=== PATIENT | female | born 1985 | race Caucasian/White ===

== ENCOUNTER 2018-01-25 16:05 | Emergency (ER) | payer OTHER, SELFPAY ==
[2018-01-25 16:07] VITALS: BP 131/84; PULSE 97; RESP 18; TEMP 36.6; O2SAT 100; BMI 27.3
[2018-01-25 16:54] VITALS: BP 127/87; PULSE 86; RESP 16; O2SAT 100
--- NOTE | 2018-01-25 16:59 | EKG12_ITS ---
Test Reason : CP Blood Pressure : / mmHG Vent. Rate : 085 BPM Atrial Rate : 085 BPM P-R Int : 174 ms QRS Dur : 086 ms QT Int : 344 ms P-R-T Axes : 073 084 071 degrees QTc Int : 409 ms Normal sinus rhythm with sinus arrhythmia Septal infarct , age undetermined Abnormal ECG Confirmed by ELIZABETH HAYES, GANESH ([id number]), scientific publications editor VY RIVERA ([id number] on 01/29/2018 2:52:21 PM Referred By: Confirmed By:GANESH JOHNSON MD
--- NOTE | 2018-01-25 17:01 | ED.DCSUM_ITS ---
- ER Visit Summary Date of Service: 01/25/18 Chief Complaint: Chest tightness History of Present Illness: The patient is a 32 F who states that she was on her way to work and she drank about half of a [employer] double shot (she drinks 1 daily) when she had a sudden onset of chest tightness in the left parasternal region. Is nonradiating. She states she felt nauseous and about 20 minutes later had an episode of vomiting followed by soft bowel movement. She states that she felt very lightheaded like she might pass out. States her symptoms have improved but states she still feels a slight chest tightness. Patient's never had anything like this before. She has her boss to bring her to the department. Patient states she has a history of hypothyroidism but has not taken her levothyroxine for about 1 year. Physical Examination: Afebrile vital signs are stable Gen: Well-nourished well-developed Head: Normocephalic atraumatic Eyes: Perrl EOMI ENT: TMs clear no rhinorrhea moist mucous membranes Neck: Supple no lymphadenopathy no JVD nontender CVS: Regular rate rhythm no murmurs normal S1-S2 Respiratory: No distress clear to auscultation bilaterally chest nontender Abdomen: Soft nontender nondistended normal bowel sounds no masses Back: Nontender Extremity: Nontender no edema Skin: Normal color no rash Neuro: alert orientated ?3 CN II-XII intact normal strength sensation reflexes gait cerebellar Psych: Anxious Test Results: EKG shows a sinus rhythm at a rate of 85. White count 11.8. BMP normal. TSH elevated at 4.51. Emergency Department Course and Treatment: To the patient with her vomiting and loose bowel movement she could be developing a gastroenteritis. Difficult to predict how she will feel in 12 hours. She also will need to restart her Synthroid. She can follow-up with her family doctor return if worsening. Impression: 1. Vomiting 2. Palpitations 3. Hypothyroidism This note was generated with [employer] dictation software. It may contain incorrect words, spelling, and punctuation that were not noted in review of the chart prior to signing ED Disposition - Plan for ED Patient: Disposition: Home or Assisted Living Chief Complaint: Anxiety Instructions: ED Gastroenteritis Viral, ED Hypothyroidism Referrals: Rg Martin MD [Primary Care Provider] - As soon as possible
[2018-01-25 17:47] LABS: Absolute Lymphocyte Count 0.83 X10^3/ul (0.83-4.51); Absolute Neutrophil Count 10.1 X10^3/uL (2.0-7.7); Basophil# 0.03 X10^3/uL; Basophil% 0.3 % (0-1); Eosinophil# 0.08 X10^3/uL; Eosinophils% 0.7 % (0-5); Hematocrit 38.4 % (37-47); Hemoglobin 12.5 g/dl (12.0-15.0); Lymphocyte # 0.83 X10^3/ul (4.0); Mean Corp Hgb Conc 32.6 g/gl (32-36); Mean Corpuscular Hgb 30.9 pg (27.0-32.0); Mean Platelet Vol. 9.9 fl (6.2-12.0); Monocyte# 0.73 X10^3/uL; Monocyte% 6.2 % (0-10); Neutrophil % 85.5 % (47-70); Platelet Count 239 K/mm3 (150-450); RBC Distribution Width CV 13.3 % (11.6-14.6); RBC Distribution Width SD 46.4 fl (35.1-43.9); Red Blood Count 4.04 M/mm3 (4.2-5.4); White Blood Count 11.8 K/mm3 (4.4-11.0)
[2018-01-25 17:52] LABS: POSITIVE COUNT NO; POSITIVE DIFFERENTIAL NO; POSITIVE MORPHOLOGY NO
[2018-01-25 17:59] LABS: Anion Gap 6 (5-15); BUN 10 mg/dL (7-18); BUN/Creat Ratio 16.2 RATIO (10-20); Calcium,Total 8.6 mg/dL (8.5-10.1); Chloride 108 mmol/L (98-107); Creatinine, Serum 0.62 mg/dL (0.55-1.02); EST Glomerular Filtration Rate 121 mL/min (>60); Est Glom Filt Rate - Afr Amer 146 mL/min (>60); Estimated Creatinine Clearance 100.12 ml/min; Glucose 106 mg/dL (74-106); Potassium 3.6 mmol/L (3.5-5.1); Sodium Level 140 mmol/L (136-145); Thyroid Stim Hormone (TSH) 4.51 uIU/mL (0.358-3.74)
[2018-01-25 18:07] VITALS: BP 117/70; PULSE 90; RESP 16; O2SAT 98
== END 2018-01-25 18:18 | disposition home or self-care (01) ==
PROVIDERS: Emergency Provider Emergency Medicine; Family Provider Family Medicine; PCP Family Medicine
DX: R11.2 Nausea with vomiting, unspecified (principal); R00.2 Palpitations; E03.9 Hypothyroidism, unspecified; R06.00 Dyspnea, unspecified; R07.89 Other chest pain; R42 Dizziness and giddiness; R19.7 Diarrhea, unspecified; Z91.14 Patient's other noncompliance with medication regimen
CPT/HCPCS: 80048; 84443; 85025; 93005; 99284; A4216

== ENCOUNTER 2018-02-01 19:44 | Emergency (ER) | payer OTHER, SELFPAY ==
[2018-02-01 19:44] VITALS: BP 134/85; PULSE 108; RESP 16; TEMP 36.8; O2SAT 95; BMI 25.4
[2018-02-01] MEDS: DiphenhydrAMINE 25 MG Capsule 50 MG PO (21:15)
--- NOTE | 2018-02-01 22:12 | NURSING ---
PT STATES THAT THE BENADRYL HELPED AND SHE FEELS BETTER.
--- NOTE | 2018-02-01 22:34 | ED.VISSUMM ---
- ER Visit Summary Date of Service: 02/01/18 Chief Complaint: Itching History of Present Illness: The patient is a 32 F increasing itching and redness facial neck and upper torso today. She started on potassium pills yesterday with mild symptoms, however worsen after taking her potassium this morning. No lip or tongue swelling. Similar symptoms with reaction to hydroxyzine 5 days ago seen at [place]. At that time she states she had throat swelling. She is given IV medicines and monitored. She is being treated for vomiting diarrhea and dehydration. Those symptoms are improving. No medications taken at home. Has tolerated Benadryl. Physical Examination: General: Alert and oriented ?3, no acute distress HEENT: Normocephalic, atraumatic. Moist mucosa membranes. Airway patent, no lip or tongue swelling. Neck: supple, nontender. Cardiovascular: Regular rate and rhythm, no murmurs Respiratory: Normal breath sounds, symmetric, no distress Abdomen: Soft, nontender, nondistended Extremities: Nontender, no edema, pulses intact ?4 Neuro: no focal neurological deficits. Skin: There is erythema bilateral maxillary anterior neck and upper torso. Test Results: [] Emergency Department Course and Treatment: Patient vital signs stable. Patient's have been concerns for allergic reaction symptoms occurring after potassium. She is given Benadryl and monitored. Discussed likely substance in the potassium pills. She did not bring her bottle to see what substance this is. States her potassium was 3.1 previously has a recheck in 2 days. She has been increasing her fruits and vegetables. She will stop her potassium pills. She will use Benadryl as needed. She will call her physician office tomorrow to discuss her reaction to her medications. All questions were answered. Treatment Plan: [] Disposition: Discharge Impression: Allergic drug reaction. This note was generated with [employer] dictation software. It may contain incorrect words, spelling, and punctuation that were not noted in review of the chart prior to signing ED Disposition - Plan for ED Patient: Disposition: Home or Assisted Living Chief Complaint: Itching Diagnosis: Allergic dermatitis Instructions: ED Allergic Reaction General Other Referrals: Rg Mcdonald MD [Primary Care Provider] - 1 Day Additional Instructions: Stop your potassium tablets. Continue Benadryl 25 mg every 6 hours as needed. Call doctor's office tomorrow to discuss your reaction to potassium tablets.
[2018-02-01 22:41] VITALS: BP 129/78; PULSE 83; RESP 18; O2SAT 98
== END 2018-02-01 22:41 | disposition home or self-care (01) ==
PROVIDERS: Emergency Provider Emergency Medicine; Family Provider Family Medicine; PCP Family Medicine
DX: L29.9 Pruritus, unspecified (principal); T50.3X5A Adverse effect of electrolytic, caloric and water-balance agents, initial encounter; Y92.9 Unspecified place or not applicable; E03.9 Hypothyroidism, unspecified; Z79.899 Other long term (current) drug therapy
CPT/HCPCS: 99283

== ENCOUNTER 2018-02-08 22:54 | Emergency (ER) | payer OTHER, SELFPAY ==
[2018-02-08 22:55] VITALS: BP 126/68; PULSE 104; RESP 20; TEMP 36.8; O2SAT 96; BMI 24.5
--- NOTE | 2018-02-08 23:10 | ED.VISSUMM ---
- ER Visit Summary Date of Service: 02/08/18 Chief Complaint: Shortness of breath, palpitations, tightness left-sided chest and numbness History of Present Illness: The patient is a 32 F who has been seen here twice in the last 2 weeks and other facilities and told that she has anxiety reaction. She presents with perioral numbness and numbness in her digits started at work. She states this started out of the blue. She complains of discomfort tightness left side of her chest with palpitations. She also complains of dry mouth. She has no history of PE DVT or any risk factors. She is on no hormonal therapy. She has had prior workup for PE and negative. Physical Examination: Blood pressure is elevated 126/68 heart rate is 104. She is not febrile nor is she hypoxic. She appears anxious. Head is atraumatic normocephalic. Pupils are equal round reactive. Extraocular muscles are intact. TMs are pearly white with landmarks noted. Nares patent with no drainage. Posterior pharynx without erythema or exudate. Uvula is midline. There is no dysphonia or dysphasia. Trachea is midline. There is no stridor with auscultation of the neck. She [place] sign is noted bilaterally. She states she had tightness of her hand when her blood pressure was checked. Heart is regular without murmur, gallop or rub. S1 and S2 are normal. Lungs are clear to auscultation with good movement of air bilaterally. Abdomen is soft nontender. Patient is alert and oriented ?3. Motor is 5 over 5. Sensory is intact. DTRs are symmetric with no clonus or Babinski sign. Cranial 2 through 12 are intact. Cerebellar testing is normal. Test Results: Patient had significant workup prior visits with similar symptoms there is no need to repeat any tests at this time. Emergency Department Course and Treatment: Was informed she having an anxiety reaction. She was given Ativan tablets in the department and discharged with prescription for Tranxene. Treatment Plan: Prescription for Tranxene and referral to counseling center Disposition: Discharged to home next field 1. Anxiety reaction 2. Hypoventilation syndrome Impression: [] This note was generated with [employer] software. It may contain incorrect words, spelling, and punctuation that were not noted in review of the chart prior to signing ED Disposition - Plan for ED Patient: Disposition: Home or Assisted Living Chief Complaint: Shortness of Breath Instructions: ED Stress React, ED Hyperventilation Syndrome Prescriptions: Clorazepate [Tranxene] 3.75 mg PO TID PRN PRN #30 tab PRN Reason: Anxiety Referrals: Rg Mcdonald MD [Primary Care Provider] - As Needed Counseling,Center [GROUP OF PHYSICIANS] - 3-5 Days
[2018-02-08] MEDS: LORazepam 0.5 MG Tablet PO (23:27)
[2018-02-08 23:32] VITALS: RESP 22
== END 2018-02-08 23:33 | disposition home or self-care (01) ==
PROVIDERS: Emergency Provider Emergency Medicine; Family Provider Family Medicine; PCP Family Medicine
DX: F41.1 Generalized anxiety disorder (principal); R06.89 Other abnormalities of breathing; E03.9 Hypothyroidism, unspecified; Z79.899 Other long term (current) drug therapy
CPT/HCPCS: 99283